=== PATIENT | female | born 1965 | race American Indian/Alaskan Native ===

== ENCOUNTER → 2024-10-14 14:11 | Outpatient (BNVA) | payer OTHER, MEDICAID, SELFPAY | PROVIDERS: Referring Provider Nurse Practitioner Family; Visit Provider Nurse Practitioner Women's Health | DX: Z12.4 Encounter for screening for malignant neoplasm of cervix (principal) | CPT/HCPCS: 87624 ==

== ENCOUNTER 2024-10-29 10:23 | Outpatient (CLI) | payer MEDICAID, SELFPAY ==
--- NOTE | 2024-10-29 10:40 | MM_ITS ---
WS: [id number] BILATERAL SCREENING DIGITAL TOMOSYNTHESIS MAMMOGRAM WITH CAD HISTORY: Z12.39 - Encounter for other screening for malignant neop... COMPARISON: 10/07/2022 Bilateral CC and MLO views with tomosynthesis and synthetic mammography submitted. Computer aided det ection analyzed. Breast composition: The breasts are heterogeneously dense, which may obscure small masses. No suspici ous masses, microcalcifications or architectural distortion. Benign calcifications. MM/MM scr BI tomosynthesis [id number] IMPRESSION: BI-RADS: 2 - Benign FOLLOW UP: 1 Year Follow-up
== END 2024-10-29 10:24 | disposition home or self-care (01) ==
LOC: RAD 10:25
PROVIDERS: PCP Nurse Practitioner Family; Visit Provider Nurse Practitioner Women's Health
DX: Z12.31 Encounter for screening mammogram for malignant neoplasm of breast (principal); R92.333 Mammographic heterogeneous density, bilateral breasts; R92.1 Mammographic calcification found on diagnostic imaging of breast
CPT/HCPCS: 77063; 77067; 88305

== ENCOUNTER 2025-07-28 16:48 | Outpatient (CLI) | payer MEDICAID, SELFPAY ==
--- NOTE | 2025-07-28 16:57 | XRR_ITS ---
PROCEDURE INFORMATION: Exam: XR Right Ankle Exam date and time: 07/28/2025 05:04 PM Age: 60 years old Clinical indication: Right; RT ankle pain, HX FX 3 yrs ago, knot on lateral malleolus; Additional info: Pain of right ankle joint TECHNIQUE: Imaging protocol: Radiologic exam of the right ankle. Views: 3 or more views. COMPARISON: No relevant prior studies available. FINDINGS: Bones/joints: Normal alignment at the mortise. No tibiotalar joint effusion. Calcaneal spur. Osteopenia. No acute fracture lucency. Healed fracture of the distal fibula. Soft tissues: Normal. XR/XR ankle RT min 3V* [id number] IMPRESSION: No acute fracture.
== END 2025-07-28 16:49 | disposition home or self-care (01) ==
PROVIDERS: PCP Internal Medicine; Visit Provider Pediatrics
DX: M25.571 Pain in right ankle and joints of right foot (principal); Z87.81 Personal history of (healed) traumatic fracture
CPT/HCPCS: 73610

== ENCOUNTER 2025-08-11 14:50 | Outpatient (CLI) | payer MEDICAID, SELFPAY ==
--- NOTE | 2025-08-11 14:55 | XR_ITS ---
WS: [id number] DEXA (DUAL ENERGY X-RAY ABSORPTIOMETRY) Bone mineral density was performed using a Smartvue machine. HISTORY: PERSONAL HISTORY OF TRAUMATIC FRACTURE COMPARISON: None available. Lumbar spine BMD (L1-L4): 0.926 g/cm2 T score: -2.1 Z score: -0.9 Total hip BMD: Left: 0.766 g/cm2. T score: -1.9 Z score: -1.0 Right: 0.754 g/cm2. T score: -2.0 Z score: -1.1 10 year probability of a major osteoporotic fracture is 23.3%. XR/XR DEXA axial skeleton* [id number] IMPRESSION: OSTEOPENIA based upon the WHO classification for females.
== END 2025-08-11 14:51 | disposition home or self-care (01) ==
LOC: RAD 14:51
PROVIDERS: PCP Internal Medicine; Visit Provider Nurse Practitioner Family
DX: Z13.820 Encounter for screening for osteoporosis (principal); M85.88 Other specified disorders of bone density and structure, other site
CPT/HCPCS: 77080

== ENCOUNTER 2025-08-16 10:09 | Day surgery (SDC) | payer MEDICAID, SELFPAY ==
[2025-08-16 10:28] VITALS: BMI 27.4
[2025-08-16 10:30] VITALS: BP 137/82; PULSE 69; RESP 18; TEMP 36.2; O2SAT 99
--- NOTE | 2025-08-16 10:49 | ANES.PREANE2 ---
Pre-Anesthetic Assessment Height/Weight: Height 1.6 m Weight 70.307 kg Temp Pulse Resp BP Pulse Ox O2 Del Method 97.1 F L 69 18 137/82 99 Room Air 08/16/25 10:30 08/16/25 10:30 08/16/25 10:30 08/16/25 10:30 08/16/25 10:30 08/16/25 10:30 Preop Diagnosis: screening Operation Date: 08/16/25 11:45 Proposed Procedures p Colonoscopy [id number] G0121 Z12.11(Not Applicable) - Cristobal Seals MD Familial anesthetic complications: none Was Beta Mercedes taken within 24 hours: N/A Was Clonidine taken within 24 hours: N/A Last intake: Intake Last Liquid Date 08/15/25 Last Liquid Time 21:00 Last Solid Date 08/14/25 Social No alcohol and No tobacco Exam alert, oriented x 3, clear to auscultation bilaterally and regular rate & rhythm Airway Submandibular: within normal limits Cervical ROM: within normal limits Mallampati: Class II Dentition: full History/ROS No significant history except as noted and No significant complaints Pulmonary None reported CV/HEM None reported None reported Hepatic None reported GI Hiatal Hernia Surgery 2022 Metabolic None reported Musc/skel None reported Neuropsych Anxiety and Depression Anesthetic Plan ASA status: 2 Anesthesia: MAC Risk of > 500 ml blood loss (7ml/kg in children): No Medications/Allergies Home Medications ?Medication ?Instructions ?Recorded ?Confirmed ?Last Taken ?Type hydroxyzine HCl 25 mg tablet 25 mg PO BID PRN Allergy Symptoms 10/14/24 08/03/25 08/14/25 History mupirocin 2 % topical ointment 1 applic topical BID 14 days #15 10/14/24 07/27/25 Unknown Rx grams sertraline 50 mg tablet (Zoloft) 50 mg PO DAILY 10/14/24 08/03/25 08/15/25 History semaglutide 0.25 mg or 0.5 mg (2 0.25 mg SUBCUT Q7D 08/15/25 08/15/25 08/10/25 History mg/3 mL) subcutaneous pen injector (Ozempic) Allergies Allergy/AdvReac Type Severity Reaction Status Date / Time Penicillins Allergy Unknown ALGY-Rash Verified 08/16/25 10:27 Current Medications Generic Name Dose Route Start Last Admin Trade Name Freq PRN Reason Stop Dose Admin Sodium Chloride 1,000 mls @ 15 mls/hr 08/16/25 10:21 08/16/25 10:36 Sodium Chloride 0.9% IV 08/17/25 10:20 15 mls/hr .Q24H PRN Administration COLONOSCOPY FLUIDS PFSH Anesthesia Family History Sister Breast cancer Mother Hypertension High cholesterol Father Heart disease Stroke Denies family history of Colon cancer Ovarian cancer Diabetes Uterine cancer Thyroid disease Social History Smoking and tobacco/nicotine status: never used tobacco/nicotine
--- NOTE | 2025-08-16 10:58 | W.PM.OPSUD ---
Surgery/Procedure H&P Update DATE OF PROCEDURE: August 16, 2025 DATE H&P PERFORMED: 07/27/25 H&P UPDATE INFORMATION: I have reviewed H&P completed within last 30 days, I have examined patient prior to procedure, No changes to prior documentation and Risks and benefits of the procedure reviewed PREOP DIAGNOSIS: screening PLANNED PROCEDURE: Operation Date: 08/16/25 11:45 Proposed Procedures p Colonoscopy [id number] G0121 Z12.11(Not Applicable) - Cristobal Seals MD
[2025-08-16 12:03] VITALS: BP 106/69; PULSE 66; RESP 16; TEMP 36.4; O2SAT 98
--- NOTE | 2025-08-16 12:38 | ANE.PACU2 ---
Inpatient post-anesthesia follow up: Airway intact: Yes Vital signs: Temperature 97.6 F Pulse Rate 66 Respiratory Rate 16 Blood Pressure 106/69 Pulse Oximetry 98 Oxygen Delivery Me thod Room Air Oxygen Flow Rate Fraction of Inspir ed Oxygen Hydration adequate: Yes Nausea and vomiting: No Pain level: 1 Mental status: Baseline
== END 2025-08-16 12:38 | disposition home or self-care (01) ==
PROVIDERS: PCP Internal Medicine; Visit Provider Student in an Organized Health Care Education/Training Program
PROC: 0DJD8ZZ Inspection of Lower Intestinal Tract, Via Natural or Artificial Opening Endoscopic (ICD-10-PCS; CPT 45378; principal; 2025-08-16 11:45)
DX: Z12.11 Encounter for screening for malignant neoplasm of colon (principal); K57.30 Diverticulosis of large intestine without perforation or abscess without bleeding; K52.9 Noninfective gastroenteritis and colitis, unspecified; D12.5 Benign neoplasm of sigmoid colon; K63.89 Other specified diseases of intestine; F41.8 Other specified anxiety disorders; Z80.3 Family history of malignant neoplasm of breast
CPT/HCPCS: 45380; 88305; J2704; J3490; J7030

== ENCOUNTER → 2025-08-31 09:16 | Outpatient (BNVA) | payer MEDICAID, SELFPAY | PROVIDERS: PCP Internal Medicine; Visit Provider Student in an Organized Health Care Education/Training Program | DX: M25.551 Pain in right hip (principal); M25.552 Pain in left hip; M16.0 Bilateral primary osteoarthritis of hip | CPT/HCPCS: 73523 ==